=== PATIENT | female | born 2000 | race African-American/Black ===

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

== ENCOUNTER 2019-07-23 23:18 | Emergency (ER) | payer MEDICAID ==
[~2019-07-23] VITALS: Ht 162.6 cm; Wt 115.0 kg
[2019-07-23] MEDS ORDERED: IPRATROPIUM BROMIDE (0.02%) 0.5MG/2.5ML NEB HHN STA (23:39)
[2019-07-23] MEDS ORDERED: ALBUTEROL (0.083%) 2.5MG/3ML NEB HHN STA (23:39)
[2019-07-23] MEDS ORDERED: ACETAMINOPHEN 325MG TABLET PO ONE (23:45)
[2019-07-24 00:54] VITALS: BP 141/67
== END 2019-07-24 00:54 | disposition home or self-care (01) ==
LOC: ER 23:18
DX: J06.9 Acute upper respiratory infection, unspecified (principal); J30.2 Other seasonal allergic rhinitis
CPT/HCPCS: 71045; 87804; 94640; 99284; Z7610

== ENCOUNTER 2019-08-03 22:08 | Emergency (ER) | payer MEDICAID ==
[~2019-08-03] VITALS: Ht 162.6 cm; Wt 112.0 kg
[2019-08-03 22:34] VITALS: BP 140/94
[2019-08-03 23:15] LABS: COLOR URINE DK YELLOW (YELLOW); KETONES URINE TRACE (NEGATIVE); LEUKOCYTE ESTERASE URINE TRACE (NEGATIVE); NITRITE URINE NEGATIVE (NEGATIVE); OCCULT BLOOD URINE 2+ (NEGATIVE); PROTEIN URINE 2+ (NEGATIVE); SPECIFIC GRAVITY URINE 1.045 (1.005-1.030); UROBILINOGEN URINE 0.2 E.U./dL (0.2-1.0)
[2019-08-03 23:31] LABS: CLARITY URINE HAZY (CLEAR)
== END 2019-08-04 00:19 | disposition home or self-care (01) ==
LOC: ER 22:08
DX: N39.0 Urinary tract infection, site not specified (principal)
CPT/HCPCS: 81003; 81025; 99283

== ENCOUNTER 2022-06-29 01:33 | Emergency (ER) | payer MEDICAID, OTHER ==
[~2022-06-29] VITALS: Ht 162.6 cm; Wt 150.0 kg
[~2022-06-29 01:33] MED LIST: ALBU6.7H3 INH; AMLO10TA80 MT; FLUT1DIS3 INH; HYDR25TA MT; P20 MT
[2022-06-29] MEDS ORDERED: ALBUTEROL (0.083%) 2.5MG/3ML NEB HHN STA (02:42)
[2022-06-29] MEDS ORDERED: IPRATROPIUM BROMIDE (0.02%) 0.5MG/2.5ML NEB HHN STA (02:42)
[2022-06-29] MEDS ORDERED: METHYLPREDNISOLONE SOD SUCC 125 MG/2 ML VIAL IV STA (02:42)
[2022-06-29] MEDS ORDERED: ALBU6.7H3 INH (04:49)
[2022-06-29] MEDS ORDERED: PRED10TA MT (04:49)
[2022-06-29 05:30] VITALS: BP 154/76
== END 2022-06-29 05:35 | disposition home or self-care (01) ==
LOC: ER 01:33
DX: J45.909 Unspecified asthma, uncomplicated (principal); I10 Essential (primary) hypertension; Z87.891 Personal history of nicotine dependence
CPT/HCPCS: 71045; 93005; 94640; 96374; 99283; J2930; Z7610

== ENCOUNTER 2022-07-10 08:51 | Emergency (ER) | payer MEDICAID ==
[~2022-07-10] VITALS: Ht 162.6 cm; Wt 150.0 kg
[~2022-07-10 08:51] MED LIST changes: +PRED10TA MT
[2022-07-10] MEDS ORDERED: AMLODIPINE 10MG TABLET PO ONE (10:45)
[2022-07-10 10:59] LABS: HCG SCREEN NEGATIVE
[2022-07-10] MEDS ORDERED: ACETAMINOPHEN 325MG TABLET PO ONE (12:15)
[2022-07-10 12:29] LABS: HEMATOCRIT. 40.6 % (36.0-48.0); MEAN CORPUSCULAR HEMOGLOBIN 28.3 pg (28.0-32.0); MEAN CORPUSCULAR VOLUME 88.6 fL (81.0-99.0); MEAN PLATELET VOLUME 10.1 fl (7.4-10.4); PLATELET 328 x1000/uL (130-400); RED BLOOD CELL COUNT 4.58 mill/uL (4.2-5.4); RED CELL DISTRIBUTION WIDTH 14.7 % (11.6-14.6)
[2022-07-10 12:31] LABS: CHLORIDE 99 mEq/L (98-107)
[2022-07-10 13:49] VITALS: BP 167/100
[2022-07-10 13:49] LABS: PLATELET ESTIMATE NORMAL
== END 2022-07-10 13:52 | disposition home or self-care (01) ==
LOC: ER 08:51
DX: I10 Essential (primary) hypertension (principal); R00.2 Palpitations; J45.909 Unspecified asthma, uncomplicated; Z98.890 Other specified postprocedural states
CPT/HCPCS: 36415; 71045; 80053; 83880; 84484; 84703; 85025; 93005; 99285

== ENCOUNTER 2022-07-12 02:29 | Inpatient (IN) | payer MEDICAID, OTHER ==
[~2022-07-12] VITALS: Ht 162.6 cm; Wt 151.5 kg
[2022-07-12] MEDS ORDERED: SODIUM CHLORIDE 0.9% 1000ML BAG (SEPSIS BOLUS) IV ONE (07:15)
[2022-07-12 07:23] LABS: CLARITY URINE CLEAR (CLEAR); COLOR URINE YELLOW (YELLOW); KETONES URINE NEGATIVE (NEGATIVE); LEUKOCYTE ESTERASE URINE NEGATIVE (NEGATIVE); NITRITE URINE NEGATIVE (NEGATIVE); OCCULT BLOOD URINE NEGATIVE (NEGATIVE); PH URINE 5.5 (4.5-8.0); PROTEIN URINE NEGATIVE (NEGATIVE); SPECIFIC GRAVITY URINE 1.023 (1.005-1.030); UROBILINOGEN URINE 0.2 E.U./dL (0.2-1.0)
[2022-07-12 08:04] LABS: BASOPHILS % 0.5 % (0.0-2.0); EOSINOPHILS % 1.8 % (0.0-5.0); HEMATOCRIT. 40.9 % (36.0-48.0); HEMOGLOBIN. 12.8 g/dL (12.0-16.0); LYMPHOCYTES % 17.6 % (20.0-50.0); MEAN CORPUSCULAR VOLUME 89.5 fL (81.0-99.0); MEAN PLATELET VOLUME 10.1 fl (7.4-10.4); MONOCYTES % 4.7 % (2.0-8.0); NEUTROPHILS % 75.4 % (40.0-76.0); PLATELET 309 x1000/uL (130-400); RED BLOOD CELL COUNT 4.57 mill/uL (4.2-5.4); RED CELL DISTRIBUTION WIDTH 14.8 % (11.6-14.6)
[2022-07-12 08:18] LABS: CHLORIDE 101 mEq/L (98-107)
[2022-07-12] MEDS ORDERED: CEFTRIAXONE 1 G PREMIX 50 ML IV ONE (09:00)
[2022-07-12] MEDS ORDERED: ACETAMINOPHEN 325MG TABLET PO PRN (12:30)
[2022-07-12] MEDS ORDERED: CEFTRIAXONE 1 G PREMIX 50 ML IV SCH (12:30)
[2022-07-12] MEDS ORDERED: ONDANSETRON HCL 4MG/2ML INJ IV PRN (12:30)
[2022-07-12] MEDS ORDERED: IPRATROPIUM/ALBUTEROL 0.5-3(2.5)MG/3ML NEB HHN PRN (12:30)
[2022-07-12] MEDS: AMLODIPINE 5MG TABLET PO SCH (14:21)
[2022-07-12] MEDS: METHYLPREDNISOLONE SOD SUCC 40 MG/ML VIAL IV SCH ×2 (14:21→20:37)
[2022-07-12 17:00] VITALS: BP 166/103
[2022-07-12 17:14] VITALS: BP 166/103
[2022-07-12] MEDS ORDERED: ALBUTEROL (0.083%) 2.5MG/3ML NEB HHN PRN (17:15)
[2022-07-12] MEDS ORDERED: IPRATROPIUM BROMIDE (0.02%) 0.5MG/2.5ML NEB HHN PRN (17:15)
[2022-07-12 20:00] VITALS: BP 124/60
[2022-07-12] MEDS ORDERED: FAMOTIDINE 20MG TABLET PO SCH (21:00)
[2022-07-13] VITALS (7 sets, daily range): BP systolic 106–174; BP diastolic 57–94
[2022-07-13] MEDS: METHYLPREDNISOLONE SOD SUCC 40 MG/ML VIAL IV SCH ×2 (04:24→13:42)
[2022-07-13 06:41] LABS: BASOPHILS % 0.2 % (0.0-2.0); HEMATOCRIT. 37.7 % (36.0-48.0); HEMOGLOBIN. 12.3 g/dL (12.0-16.0); LYMPHOCYTES % 7.6 % (20.0-50.0); MEAN CORPUSCULAR HEMOGLOBIN 29.1 pg (28.0-32.0); MEAN CORPUSCULAR VOLUME 89.3 fL (81.0-99.0); MEAN PLATELET VOLUME 10.8 fl (7.4-10.4); MONOCYTES % 2.2 % (2.0-8.0); PLATELET 279 x1000/uL (130-400); RED BLOOD CELL COUNT 4.23 mill/uL (4.2-5.4); RED CELL DISTRIBUTION WIDTH 14.8 % (11.6-14.6)
[2022-07-13 07:04] LABS: HEPATITIS B SURFACE ANTIGEN NEGATIVE
[2022-07-13 07:46] LABS: CHLORIDE 105 mEq/L (98-107)
[2022-07-13] MEDS ORDERED: CEFTRIAXONE 1,000 MG in DEXTROSE 5% WATER 50 ML IV SCH (09:00)
[2022-07-13] MEDS: AMLODIPINE 5MG TABLET PO SCH (09:36)
[2022-07-13] MEDS ORDERED: AMLO5TAB88 MT (13:29)
[2022-07-13] MEDS ORDERED: LEVO750T68 MT (13:30)
[2022-07-13] MEDS ORDERED: IPRATROPIUM/ALBUTEROL 0.5-3(2.5)MG/3ML NEB HHN SCH (14:00)
[2022-07-13] MEDS ORDERED: ALBUTEROL (0.083%) 2.5MG/3ML NEB HHN SCH (14:03)
[2022-07-13] MEDS ORDERED: IPRATROPIUM BROMIDE (0.02%) 0.5MG/2.5ML NEB HHN SCH (14:03)
[2022-07-13] MEDS ORDERED: HYDROCHLOROTHIAZIDE 25MG TABLET PO NR (16:30)
[2022-07-13] MEDS ORDERED: PREDNISONE 20MG TABLET PO SCH (17:00)
== END 2022-07-13 18:15 | disposition home or self-care (01) | DRG 133 ==
LOC: ER 02:29 → MICUSO 10:05 → 7WST 17:01
PROVIDERS: ADMIT Internal Medicine; ATTEND Internal Medicine
DX: J96.00 Acute respiratory failure, unspecified whether with hypoxia or hypercapnia (principal); J45.901 Unspecified asthma with (acute) exacerbation; R65.10 Systemic inflammatory response syndrome (SIRS) of non-infectious origin without acute organ dysfunction; Z20.822 Contact with and (suspected) exposure to COVID-19; Z68.43 Body mass index [BMI] 50.0-59.9, adult; J06.9 Acute upper respiratory infection, unspecified; E66.01 Morbid (severe) obesity due to excess calories; I10 Essential (primary) hypertension; Z63.4 Disappearance and death of family member; Z87.891 Personal history of nicotine dependence; Z82.49 Family history of ischemic heart disease and other diseases of the circulatory system; Z79.899 Other long term (current) drug therapy
CPT/HCPCS: 36415; 71045; 80048; 80053; 81003; 83605; 83880; 84145; 84484; 85025; 85379; 86803; 87070; 87340; 87426; 87430; 87804; 93005; 93970; 99285; C9803; J0696; J2920; J7030; J7060; J7512

== ENCOUNTER 2025-03-10 00:42 | Inpatient (IN) | payer MEDICAID ==
[~2025-03-10] VITALS: Ht 162.6 cm; Wt 167.8 kg
[2025-03-10] VITALS (9 sets, daily range): BP systolic 131–209; BP diastolic 87–117; PULSE 79–112; RESP 19–25; TEMP 36.7–36.9184; O2SAT 96–100
[~2025-03-10 00:42] MED LIST changes: +ALBU05 NEB; +ALBU6.7H15 INH; +AMLO5TAB88 MT; +LEVO750T68 MT; -P20 MT; +P50 PO; -PRED10TA MT; +saline NEB
[2025-03-10] MEDS: METHYLPREDNISOLONE SOD SUCC 125MG/2ML (ACT-O-VIAL) IV ONE (01:21)
[2025-03-10] MEDS: AMLODIPINE 5MG TABLET PO ONE (01:21)
[2025-03-10] MEDS: LOSARTAN 50 MG TABLET PO ONE (01:21)
[2025-03-10] MEDS: SODIUM CHLORIDE 0.9% 1,000 ML IV ONE (01:22)
[2025-03-10 02:28] LABS: BG DEOXYHEMOGLOBIN 21.8 % (0.0-5.0)
[2025-03-10 02:39] LABS: BASOPHILS % 0.6 % (0.0-2.0); EOSINOPHILS % 1.1 % (0.0-5.0); HEMATOCRIT. 35.6 % (36.0-48.0); HEMOGLOBIN. 11.1 g/dL (12.0-16.0); LYMPHOCYTES % 10.8 % (20.0-50.0); MEAN PLATELET VOLUME 10.4 fl (7.4-10.4); MONOCYTES % 4.4 % (2.0-8.0); NEUTROPHILS % 83.1 % (40.0-76.0); PLATELET 215 x1000/uL (130-400); RED BLOOD CELL COUNT 4.25 mill/uL (4.2-5.4); RED CELL DISTRIBUTION WIDTH 16.5 % (11.6-14.6)
[2025-03-10 02:50] LABS: CREATININE 1.1 mg/dL (0.6-1.0); UREA NITROGEN BLOOD 11 mg/dL (9-23)
[2025-03-10 02:51] LABS: INR 1.0
[2025-03-10 02:52] LABS: ASPARTATE AMINOTRANSFERASE 32 IU/L (<34)
[2025-03-10 02:53] LABS: BILIRUBIN DIRECT 0.2 mg/dL (<=3.0); BILIRUBIN TOTAL 0.4 mg/dL (0.1-1.0); PROTEIN TOTAL 7.6 g/dL (6.0-8.3)
[2025-03-10] MEDS ORDERED: IPRATROPIUM/ALBUTEROL 0.5-3(2.5)MG/3ML NEB HHN PRN (04:00)
[2025-03-10] MEDS ORDERED: GUAIFENESIN/DM 600MG/30MG ER TAB 12HR PO PRN (04:00)
[2025-03-10] MEDS ORDERED: ACETAMINOPHEN 325MG TABLET PO PRN (04:00)
[2025-03-10] MEDS ORDERED: ONDANSETRON HCL 4MG/2ML INJ IV PRN (04:00)
[2025-03-10 04:01] LABS: *AMPHETAMINES SCREEN URINE NEGATIVE (NEGATIVE); *BARBITURATES SCREEN URINE NEGATIVE (NEGATIVE); *BENZODIAZEPINES SCREEN URINE NEGATIVE (NEGATIVE); *COCAINE SCREEN URINE NEGATIVE (NEGATIVE); CANNABINOID URINE SCREEN NEGATIVE (NEGATIVE); ECSTASY MDMA SCREEN URINE NEGATIVE (NEGATIVE); METHADONE URINE SCREEN NEGATIVE (NEGATIVE); OPIATES URINE SCREEN NEGATIVE (NEGATIVE); PHENCYCLIDINE URINE SCREEN NEGATIVE (NEGATIVE)
[2025-03-10] MEDS: HYDRALAZINE 20MG/ML VIAL IV NR (04:06)
[2025-03-10] MEDS ORDERED: ALBUTEROL (0.083%) 2.5MG/3ML NEB HHN SCH (04:15)
[2025-03-10] MEDS ORDERED: IPRATROPIUM BROMIDE (0.02%) 0.5MG/2.5ML NEB HHN NR (04:15)
[2025-03-10 04:33] LABS: HCG SCREEN NEGATIVE
[2025-03-10] MEDS: IPRATROPIUM BROMIDE (0.02%) 0.5MG/2.5ML NEB HHN ONE (04:53)
[2025-03-10] MEDS: ALBUTEROL (0.083%) 2.5MG/3ML NEB HHN SCH ×2 (04:53→14:07)
[2025-03-10] MEDS: HYDRALAZINE HCL 50MG TABLET PO SCH (05:03)
[2025-03-10] MEDS: FUROSEMIDE 20MG/2ML VIAL IVP NR (05:03)
[2025-03-10] MEDS ORDERED: BENZONATATE 100MG CAPSULE PO PRN (06:15)
[2025-03-10] MEDS: CLONIDINE 0.1MG TABLET PO PRN (06:21)
[2025-03-10] MEDS: PANTOPRAZOLE 40MG DR TABLET PO SCH (06:53)
[2025-03-10] MEDS: LOSARTAN 50 MG TABLET PO SCH ×2 (08:52→17:07)
[2025-03-10] MEDS: AMLODIPINE 10MG TABLET PO SCH (08:52)
[2025-03-10] MEDS: ENOXAPARIN 40MG/0.4ML SYR SUBCUT SCH (08:53)
[2025-03-10 08:59] LABS: CLARITY URINE CLEAR (CLEAR); COLOR URINE COLORLESS (YELLOW)
[2025-03-10 09:00] LABS: GLUCOSE URINE NEGATIVE (NEGATIVE); KETONES URINE NEGATIVE (NEGATIVE); LEUKOCYTE ESTERASE URINE NEGATIVE (NEGATIVE); NITRITE URINE NEGATIVE (NEGATIVE); OCCULT BLOOD URINE NEGATIVE (NEGATIVE); PH URINE 7.0 (4.5-8.0); PROTEIN URINE TRACE (NEGATIVE); SPECIFIC GRAVITY URINE 1.006 (1.005-1.030); UROBILINOGEN URINE 0.2 E.U./dL (0.2-1.0)
[2025-03-10] MEDS ORDERED: FLUTICASONE/VILANTEROL 200-25 BLST.W.DEV ORI SCH ×2 (09:00)
[2025-03-10] MEDS ORDERED: LOSARTAN 50 MG TABLET PO SCH (09:00)
[2025-03-10 09:28] LABS: INFLUENZA TYPE A Presumptive Negative (Pres. Neg.); INFLUENZA TYPE B Presumptive Negative (Pres. Neg.)
[2025-03-10 09:29] LABS: RESPIRATORY SYNCYTIAL VIRUS Not Detected (Not Detectd)
[2025-03-10 09:36] LABS: SQUAMOUS EPITHELIAL CELL URINE RARE /lpf (RARE/1+)
[2025-03-10 09:37] LABS: BACTERIA URINE NONE SEEN; RBC URINE 0-2 /hpf (0-2); WBC URINE NONE SEEN /hpf (0-2)
[2025-03-10] MEDS: HYDROCHLOROTHIAZIDE 25MG TABLET PO SCH (11:21)
[2025-03-10] MEDS: ACETAMINOPHEN 325MG TABLET PO PRN (11:23)
[2025-03-10 11:59] LABS: HEMATOCRIT. 35.6 % (36.0-48.0); HEMOGLOBIN. 11.2 g/dL (12.0-16.0); MEAN PLATELET VOLUME 10.8 fl (7.4-10.4); PLATELET 239 x1000/uL (130-400); RED BLOOD CELL COUNT 4.27 mill/uL (4.2-5.4); RED CELL DISTRIBUTION WIDTH 16.5 % (11.6-14.6)
[2025-03-10] MEDS: CLONIDINE 0.1MG TABLET PO NR (12:00)
[2025-03-10 12:13] LABS: TROPONIN I HIGH SENSITIVITY 32 ng/L (3.0-34)
[2025-03-10 12:14] LABS: CREATINE KINASE MB FRACTION 2.1 ng/mL (0.5-3.6)
[2025-03-10 12:16] LABS: T4 FREE 1.24 ng/dL (0.89-1.76)
[2025-03-10 12:18] LABS: FOLIC ACID (FOLATE) SERUM 11.99 ng/mL (>5.38); VITAMIN B12 SERUM 379 pg/mL (211-911)
[2025-03-10] MEDS: HYDRALAZINE 20MG/ML VIAL IV PRN (12:27)
[2025-03-10 12:38] LABS: CREATININE 1.0 mg/dL (0.6-1.0); TRIGLYCERIDE 68 mg/dL (0-150); UREA NITROGEN BLOOD 10 mg/dL (9-23)
[2025-03-10 12:39] LABS: LDL CHOLESTEROL 39 mg/dL (5-100)
[2025-03-10 12:40] LABS: PHOSPHORUS 2.9 mg/dL (2.5-4.9)
[2025-03-10 12:50] LABS: HEPATITIS C AB NON REACTIVE (Neg) (Negative)
[2025-03-10] MEDS: BUDESONIDE 0.5MG/2ML NEB HHN SCH (14:08)
[2025-03-10 17:39] LABS: TROPONIN I HIGH SENSITIVITY 39 ng/L (3.0-34)
[2025-03-10] MEDS: KETOROLAC 15MG/ML VIAL IV PRN (17:54)
[2025-03-10 18:57] LABS: LYMPHOCYTES % MANUAL 6.0 % (20.0-60.0); MONOCYTES % MANUAL 2.0 % (2.0-8.0); NEUTROPHILS % MANUAL 92.0 % (45.0-75.0); PLATELET ESTIMATE NORMAL
[2025-03-10] MEDS ORDERED: LOSARTAN 100 MG TABLET PO SCH (21:00)
[2025-03-10] MEDS: HYDRALAZINE HCL 100MG TABLET PO SCH (21:44)
[2025-03-11] VITALS (7 sets, daily range): BP systolic 104–163; BP diastolic 58–110; PULSE 67–102; RESP 14–22; TEMP 36.6–37.1; O2SAT 98–99
[2025-03-11 01:46] LABS: LACTATE DEHYDROGENASE 302 IU/L (120-246)
[2025-03-11] MEDS: MAGNESIUM 1 G PREMIX 100 ML IV NR (01:50)
[2025-03-11 08:07] LABS: BASOPHILS % 0.1 % (0.0-2.0); EOSINOPHILS % 0.3 % (0.0-5.0); HEMATOCRIT. 35.5 % (36.0-48.0); HEMOGLOBIN. 11.4 g/dL (12.0-16.0); LYMPHOCYTES % 16.7 % (20.0-50.0); MEAN PLATELET VOLUME 10.5 fl (7.4-10.4); MONOCYTES % 6.4 % (2.0-8.0); NEUTROPHILS % 76.5 % (40.0-76.0); PLATELET 263 x1000/uL (130-400); RED BLOOD CELL COUNT 4.30 mill/uL (4.2-5.4); RED CELL DISTRIBUTION WIDTH 17.2 % (11.6-14.6)
[2025-03-11 08:28] LABS: CREATININE 1.2 mg/dL (0.6-1.0)
[2025-03-11 08:29] LABS: UREA NITROGEN BLOOD 15 mg/dL (9-23)
[2025-03-11] MEDS: LOSARTAN 100 MG TABLET PO SCH (08:51)
[2025-03-11] MEDS ORDERED: SODIUM CHLORIDE 0.9% 500 ML IV ONE (09:30)
[2025-03-11] MEDS: MAGNESIUM 2 G PREMIX 50 ML IV SCH (11:00)
[2025-03-11] MEDS ORDERED: HYDR100T31 PO (12:22)
[2025-03-11] MEDS ORDERED: HYDR25TA PO (12:22)
[2025-03-11] MEDS ORDERED: LOSA100T33 PO (12:22)
[2025-03-11] MEDS ORDERED: BENZ100C86 PO (12:22)
[2025-03-11] MEDS ORDERED: AMLO10TA80 MT (12:22)
[2025-03-11] MEDS: CEFTRIAXONE 2GM/50ML 50 ML IV SCH (12:27)
[2025-03-11] MEDS ORDERED: DOXYCYCLINE HYCLATE 100MG CAPSULE PO SCH (21:00)
== END 2025-03-11 15:45 | disposition home or self-care (01) | DRG 199 ==
LOC: ER 00:42 → 3WST 03:28 → EDBEDREQ 04:03 → EDBEDREQTM 04:03 → ENRESERV 04:15
PROVIDERS: ADMIT Internal Medicine; ATTEND Internal Medicine
DX: I16.0 Hypertensive urgency (principal); J45.901 Unspecified asthma with (acute) exacerbation; I11.9 Hypertensive heart disease without heart failure; E66.01 Morbid (severe) obesity due to excess calories; Z68.43 Body mass index [BMI] 50.0-59.9, adult; G47.33 Obstructive sleep apnea (adult) (pediatric); D64.9 Anemia, unspecified; L73.2 Hidradenitis suppurativa; N28.9 Disorder of kidney and ureter, unspecified; Z91.148 Patient's other noncompliance with medication regimen for other reason; Z87.891 Personal history of nicotine dependence; Z79.899 Other long term (current) drug therapy; Z79.51 Long term (current) use of inhaled steroids
CPT/HCPCS: 36415; 71045; 80048; 80061; 80076; 80305; 80320; 81003; 82306; 82375; 82550; 82553; 82607; 82728; 82746; 82803; 83036; 83605; 83615; 83735; 83880; 84100; 84145; 84439; 84443; 84484; 84703; 85025; 85379; 86705; 87340; 87420; 87804; 93005; 93306; 93970; 94070; 94640; 94664; 96361; 96374; 98960; 99285; A4606; J0360; J0696; J1650; J1885; J1938; J2919; J3475; J7030; J7626; G0480